=== PATIENT | male | born 1975 | race Caucasian/White ===

== ENCOUNTER 2021-11-13 11:07 | Inpatient (IN) ==
[2021-11-13] MEDS ORDERED: 0.9 % Sodium Chloride 1,000 ML IVC ONE (11:30)
[2021-11-13] MEDS ORDERED: Ondansetron 4 MG/2 ML VIAL IVP ONE (11:47)
[2021-11-13 11:58] LABS: Basophils % 0.2 %; Eosinophils % 0.2 %; Mean Corpuscular Volume 97.4 fL (83.0-100.0)
[2021-11-13 12:00] LABS: Hematocrit 37.2 % (37.5-50.1); Immature Granulocytes % 1.6 % (0-4); Immature Platelets 3.9 % (1.1-6.1); Lymphocytes # 0.9 K/mcL (0.6-4.6); Lymphocytes % 18.6 %; Mean Corpuscular HGB Conc 34.9 g/dL (31.6-35.5); Mean Platelet Volume 9.1 fL (9.4-12.4); Monocytes # 0.7 K/mcL (0.0-1.3); Monocytes % 15.1 %; Red Blood Count 3.82 M/mcL (4.19-5.50); Red Cell Distribution Width 12.3 % (11.5-14.5); Segmented Neutrophils % 64.3 %; White Blood Count 4.9 K/mcL (4.3-11.1)
[2021-11-13 12:21] LABS: BUN/Creatinine Ratio 11 (6-26); Blood Urea Nitrogen 12 mg/dL (6-20); Calcium 8.3 mg/dL (8.6-10.3); Carbon Dioxide 25 mEq/L (23-29); Chloride 89 mEq/L (98-107); Glucose 81 mg/dL (70-105); Osmolality,Calculated 245 (280-300); Potassium 4.2 mEq/L (3.5-5.1); Sodium 118 mEq/L (136-145); eGFR For African Americans > 60 (> 60); eGFR For Non-African Americans > 60 (> 60)
[2021-11-13 13:26] LABS: Neutrophils # 3.2 K/mcL (1.6-8.9); Platelet Count 66 K/mcL (140-400)
[2021-11-13] MEDS ORDERED: Naloxone 0.4 MG/ML INJ IVP PRN (15:52)
[2021-11-13 18:30] LABS: BUN/Creatinine Ratio 10 (6-26); Blood Urea Nitrogen 11 mg/dL (6-20); Calcium 8.6 mg/dL (8.6-10.3); Carbon Dioxide 26 mEq/L (23-29); Chloride 91 mEq/L (98-107); Glucose 84 mg/dL (70-105); Osmolality,Calculated 253 (280-300); Potassium 4.6 mEq/L (3.5-5.1); Sodium 122 mEq/L (136-145); eGFR For African Americans > 60 (> 60); eGFR For Non-African Americans > 60 (> 60)
[2021-11-13 18:45] LABS: Thyroid Stimulating Hormone 8.513 mcIU/mL (0.340-5.600)
[2021-11-13 18:47] LABS: Triiodothyronine (T3) Free 2.14 pg/mL (2.50-3.90)
[2021-11-14 00:57] LABS: Bilirubin,Urine Negative (Negative); Blood,Urine Negative (Negative); Clarity,Urine Clear (Clear); Color,Urine Light-Yellow (Yellow); Glucose,Urine (UA) Normal (Normal); Ketones,Urine Negative (Negative); Leukocyte Esterase,Urine Negative (Negative); Nitrite,Urine Negative (Negative); PH,Urine 6.5 pH Units (5.0-8.0); Protein,Urine Negative (Neg-Trace); Specific Gravity,Urine 1.006 (1.010-1.025)
[2021-11-14 01:06] LABS: Sodium, Urine 33.8 mEq/L
[2021-11-14 03:03] LABS: Mean Corpuscular Hemoglobin 33.9 pg (28.0-33.3)
[2021-11-14 03:05] LABS: Hematocrit 39.5 % (37.5-50.1); Hemoglobin 13.5 g/dL (12.9-16.9); Immature Platelets 2.7 % (1.1-6.1); Mean Corpuscular HGB Conc 34.2 g/dL (31.6-35.5); Mean Corpuscular Volume 99.2 fL (83.0-100.0); Mean Platelet Volume 9.2 fL (9.4-12.4); Red Blood Count 3.98 M/mcL (4.19-5.50); Red Cell Distribution Width 12.2 % (11.5-14.5); White Blood Count 3.9 K/mcL (4.3-11.1)
[2021-11-14 07:37] LABS: BUN/Creatinine Ratio 10 (6-26); Blood Urea Nitrogen 11 mg/dL (6-20); Calcium 8.7 mg/dL (8.6-10.3); Carbon Dioxide 28 mEq/L (23-29); Chloride 93 mEq/L (98-107); Glucose 88 mg/dL (70-105); Osmolality,Calculated 261 (280-300); Potassium 4.3 mEq/L (3.5-5.1); Sodium 126 mEq/L (136-145); eGFR For African Americans > 60 (> 60); eGFR For Non-African Americans > 60 (> 60)
[2021-11-14 10:45] LABS: BUN/Creatinine Ratio 11 (6-26); Blood Urea Nitrogen 12 mg/dL (6-20); Calcium 8.8 mg/dL (8.6-10.3); Carbon Dioxide 26 mEq/L (23-29); Chloride 94 mEq/L (98-107); Glucose 85 mg/dL (70-105); Osmolality,Calculated 261 (280-300); Potassium 4.3 mEq/L (3.5-5.1); Sodium 126 mEq/L (136-145); eGFR For African Americans > 60 (> 60); eGFR For Non-African Americans > 60 (> 60)
[2021-11-14] MEDS ORDERED: Iopamidol - 370 500 ML MLS IVP ONE (11:47)
[2021-11-14 15:39] LABS: BUN/Creatinine Ratio 12 (6-26); Blood Urea Nitrogen 13 mg/dL (6-20); Calcium 8.7 mg/dL (8.6-10.3); Carbon Dioxide 26 mEq/L (23-29); Chloride 95 mEq/L (98-107); Glucose 120 mg/dL (70-105); Osmolality,Calculated 265 (280-300); Potassium 4.1 mEq/L (3.5-5.1); Sodium 127 mEq/L (136-145); eGFR For African Americans > 60 (> 60); eGFR For Non-African Americans > 60 (> 60)
[2021-11-14] MEDS: Divalproex (12 HR) 500 MG TABLET PO SCH (16:24)
[2021-11-14 16:46] LABS: BUN/Creatinine Ratio 12 (6-26); Blood Urea Nitrogen 13 mg/dL (6-20); Calcium 8.7 mg/dL (8.6-10.3); Carbon Dioxide 26 mEq/L (23-29); Chloride 95 mEq/L (98-107); Glucose 144 mg/dL (70-105); Osmolality,Calculated 265 (280-300); Sodium 126 mEq/L (136-145); eGFR For African Americans > 60 (> 60); eGFR For Non-African Americans > 60 (> 60)
[2021-11-14] MEDS: hydrOXYzine pamoate 25 MG CAPSULE PO SCH (20:40)
[2021-11-14] MEDS: Topiramate 25 MG TABLET PO SCH (20:40)
[2021-11-14] MEDS: QUEtiapine Fumarate 300 MG TABLET PO SCH (20:41)
[2021-11-14] MEDS: tiZANidine 4 MG TABLET PO SCH (20:41)
[2021-11-14] MEDS: clonazePAM 0.5 MG TABLET PO SCH (21:20)
[2021-11-14] MEDS: *HR* HYDROcodone/Acet 10/325 mg TABLET PO PRN (21:20)
[2021-11-15 06:12] LABS: Hematocrit 40.1 % (37.5-50.1); Immature Platelets 2.8 % (1.1-6.1); Mean Corpuscular HGB Conc 34.9 g/dL (31.6-35.5); Mean Corpuscular Hemoglobin 34.1 pg (28.0-33.3); Mean Corpuscular Volume 97.8 fL (83.0-100.0); Mean Platelet Volume 8.9 fL (9.4-12.4); Red Blood Count 4.1 M/mcL (4.19-5.50); Red Cell Distribution Width 12.6 % (11.5-14.5); White Blood Count 3.6 K/mcL (4.3-11.1)
[2021-11-15 06:30] LABS: BUN/Creatinine Ratio 13 (6-26); Blood Urea Nitrogen 14 mg/dL (6-20); Calcium 8.9 mg/dL (8.6-10.3); Carbon Dioxide 24 mEq/L (23-29); Chloride 98 mEq/L (98-107); Glucose 73 mg/dL (70-105); Osmolality,Calculated 267 (280-300); Potassium 4.1 mEq/L (3.5-5.1); Sodium 129 mEq/L (136-145); eGFR For African Americans > 60 (> 60); eGFR For Non-African Americans > 60 (> 60)
[2021-11-15 07:21] LABS: Vitamin B12 835 pg/mL (250-1100)
[2021-11-15 08:03] LABS: Hepatitis B Surface Antigen Nonreactive (Nonreactive)
[2021-11-15 08:32] LABS: HIV-1&2 Antibody & p24 Ag Nonreactive (Nonreactive); Hepatitis C Virus Antibody Nonreactive (Nonreactive)
[2021-11-15] MEDS ORDERED: clonazePAM 0.5 MG TABLET PO SCH (09:00)
[2021-11-15] MEDS: Topiramate 25 MG TABLET PO SCH ×2 (09:13→21:55)
[2021-11-15] MEDS: Divalproex (12 HR) 500 MG TABLET PO SCH ×2 (09:13→17:05)
[2021-11-15] MEDS: hydrOXYzine pamoate 25 MG CAPSULE PO SCH ×2 (09:15→21:54)
[2021-11-15] MEDS: clonazePAM 0.5 MG TABLET PO SCH ×2 (09:15→21:55)
[2021-11-15] MEDS: tiZANidine 4 MG TABLET PO SCH (21:54)
[2021-11-15] MEDS: QUEtiapine Fumarate 300 MG TABLET PO SCH (21:54)
[2021-11-16 07:41] LABS: Hematocrit 39.7 % (37.5-50.1); Hemoglobin 13.5 g/dL (12.9-16.9); Immature Platelets 4.8 % (1.1-6.1); Mean Platelet Volume 9.3 fL (9.4-12.4); Red Blood Count 3.97 M/mcL (4.19-5.50); Red Cell Distribution Width 12.3 % (11.5-14.5); White Blood Count 3.9 K/mcL (4.3-11.1)
[2021-11-16] MEDS: Divalproex (12 HR) 500 MG TABLET PO SCH ×2 (08:01→18:09)
[2021-11-16] MEDS: hydrOXYzine pamoate 25 MG CAPSULE PO SCH ×2 (08:02→21:05)
[2021-11-16] MEDS: Topiramate 25 MG TABLET PO SCH ×2 (08:02→21:05)
[2021-11-16 08:11] LABS: BUN/Creatinine Ratio 11 (6-26); Blood Urea Nitrogen 11 mg/dL (6-20); Calcium 8.6 mg/dL (8.6-10.3); Carbon Dioxide 25 mEq/L (23-29); Chloride 99 mEq/L (98-107); Glucose 75 mg/dL (70-105); Osmolality,Calculated 268 (280-300); Potassium 4.8 mEq/L (3.5-5.1); Sodium 130 mEq/L (136-145); eGFR For African Americans > 60 (> 60); eGFR For Non-African Americans > 60 (> 60)
[2021-11-16] MEDS: *HR* HYDROcodone/Acet 10/325 mg TABLET PO PRN (21:04)
[2021-11-16] MEDS: QUEtiapine Fumarate 300 MG TABLET PO SCH (21:05)
[2021-11-16] MEDS: tiZANidine 4 MG TABLET PO SCH (21:05)
[2021-11-16] MEDS: clonazePAM 0.5 MG TABLET PO SCH (21:05)
[2021-11-17 05:10] LABS: Hematocrit 41.1 % (37.5-50.1); Hemoglobin 13.7 g/dL (12.9-16.9); Mean Corpuscular HGB Conc 33.3 g/dL (31.6-35.5); Mean Corpuscular Hemoglobin 33.3 pg (28.0-33.3); Mean Corpuscular Volume 99.8 fL (83.0-100.0); Mean Platelet Volume 9.6 fL (9.4-12.4); Red Blood Count 4.12 M/mcL (4.19-5.50); Red Cell Distribution Width 12.1 % (11.5-14.5); White Blood Count 5.2 K/mcL (4.3-11.1)
[2021-11-17 05:12] LABS: Platelet Count 73 K/mcL (140-400)
[2021-11-17 05:28] LABS: Alanine Aminotransferase 11 Units/L (7-52); Albumin 3.6 g/dL (3.5-5.7); Albumin/Globulin Ratio 1.3 (1.1-2.2); Alkaline Phosphatase 54 Units/L (34-104); Aspartate Amino Transferase 27 Units/L (13-39); BUN/Creatinine Ratio 14 (6-26); Bilirubin,Total 0.6 mg/dL (0.3-1.0); Blood Urea Nitrogen 13 mg/dL (6-20); Calcium 9.1 mg/dL (8.6-10.3); Carbon Dioxide 26 mEq/L (23-29); Chloride 99 mEq/L (98-107); Globulin 2.8 g/dL (2.4-3.5); Glucose 120 mg/dL (70-105); Osmolality,Calculated 273 (280-300); Potassium 4.5 mEq/L (3.5-5.1); Sodium 131 mEq/L (136-145); Total Protein 6.4 g/dL (6.4-8.9); eGFR For African Americans > 60 (> 60); eGFR For Non-African Americans > 60 (> 60)
[2021-11-17] MEDS: hydrOXYzine pamoate 25 MG CAPSULE PO SCH (07:54)
[2021-11-17] MEDS: Divalproex (12 HR) 500 MG TABLET PO SCH (07:54)
[2021-11-17] MEDS: Topiramate 25 MG TABLET PO SCH (07:54)
[2021-11-17 08:04] VITALS: BP 121/80
[2021-11-17 12:05] VITALS: PULSE 86; TEMP 97.2
[2021-11-17 12:13] VITALS: O2SAT 95
== END 2021-11-17 15:30 | disposition home or self-care (01) | DRG 177 ==
LOC: 3NENU 11:07 → EMEROOARM 11:07 → SUATTDRO 15:02 → 3NENU 16:54
PROVIDERS: ADMIT Internal Medicine; ATTEND Internal Medicine

== ENCOUNTER 2022-01-23 12:26 | Observation (INO) ==
[2022-01-23] MEDS ORDERED: 0.9 % Sodium Chloride 1,000 ML IVC ONE (13:26)
[2022-01-23] MEDS ORDERED: Ondansetron 4 MG/2 ML VIAL IVP ONE (13:26)
[2022-01-23] MEDS ORDERED: *HR* FentaNYL (PF) 100 MCG/2 ML VIAL IVP STA (13:26)
[2022-01-23 13:49] LABS: Hematocrit 37.7 % (37.5-50.1); Hemoglobin 13.5 g/dL (12.9-16.9); Mean Corpuscular HGB Conc 35.8 g/dL (31.6-35.5); Mean Corpuscular Hemoglobin 33.8 pg (28.0-33.3); Mean Corpuscular Volume 94.5 fL (83.0-100.0); Mean Platelet Volume 8.6 fL (9.4-12.4); Platelet Count 175 K/mcL (140-400); Red Blood Count 3.99 M/mcL (4.19-5.50); Red Cell Distribution Width 11.3 % (11.5-14.5); White Blood Count 9.7 K/mcL (4.3-11.1)
[2022-01-23 14:20] LABS: Bilirubin,Urine Negative (Negative); Blood,Urine Negative (Negative); Clarity,Urine Clear (Clear); Color,Urine Light-Yellow (Yellow); Glucose,Urine (UA) Normal (Normal); Ketones,Urine Trace mg/dL (Negative); Leukocyte Esterase,Urine Negative (Negative); Nitrite,Urine Negative (Negative); Protein,Urine Negative (Neg-Trace); Specific Gravity,Urine 1.014 (1.010-1.025); Urobilinogen,Urine Normal (Normal)
[2022-01-23 14:23] LABS: Alanine Aminotransferase 25 Units/L (7-52); Albumin 3.7 g/dL (3.5-5.7); Alkaline Phosphatase 69 Units/L (34-104); Aspartate Amino Transferase 80 Units/L (13-39); BUN/Creatinine Ratio 14 (6-26); Bilirubin,Direct 0.3 mg/dL (0.0-0.2); Bilirubin,Indirect 0.4 mg/dL (0.0-1.0); Bilirubin,Total 0.7 mg/dL (0.3-1.0); Blood Urea Nitrogen 12 mg/dL (6-20); Calcium 9.6 mg/dL (8.6-10.3); Carbon Dioxide 27 mEq/L (23-29); Chloride 86 mEq/L (98-107); Globulin 3.7 g/dL (2.4-3.5); Glucose 95 mg/dL (70-105); Lipase 60 Units/L (11-82); Osmolality,Calculated 254 (280-300); Sodium 122 mEq/L (136-145); Total Protein 7.4 g/dL (6.4-8.9)
[2022-01-23] MEDS ORDERED: Naloxone 0.4 MG/ML INJ IVP PRN (15:50)
[2022-01-23] MEDS ORDERED: Ondansetron 4 MG/2 ML VIAL IVP PRN (15:50)
[2022-01-23] MEDS ORDERED: 0.9 % Sodium Chloride 1,000 ML IVC SCH (16:00)
[2022-01-23] MEDS ORDERED: D5% in Water 1,000 ML IVC PRN (17:16)
[2022-01-23] MEDS ORDERED: *HR* Dextrose 50 % in Water (Syg) 50 ML SYRINGE IVP PRN (17:16)
[2022-01-23] MEDS ORDERED: Dextrose Gel 15 GM/37.5 ML TUBE PO PRN ×2 (17:16)
[2022-01-23] MEDS: hydrOXYzine pamoate 25 MG CAPSULE PO SCH (21:57)
[2022-01-23] MEDS: Topiramate 25 MG TABLET PO SCH (21:58)
[2022-01-23] MEDS: QUEtiapine Fumarate 300 MG TABLET PO SCH (21:58)
[2022-01-23] MEDS: Gabapentin 300 MG CAPSULE PO SCH (21:58)
[2022-01-23] MEDS: *HR* HYDROcodone/Acet 10/325 mg TABLET PO SCH (21:58)
[2022-01-24 02:24] LABS: Basophils % 0.2 %; Eosinophils % 0.1 %; Hematocrit 36.5 % (37.5-50.1); Hemoglobin 12.6 g/dL (12.9-16.9); Immature Granulocytes % 0.5 % (0-4); Lymphocytes # 1.2 K/mcL (0.6-4.6); Lymphocytes % 14.4 %; Mean Corpuscular HGB Conc 34.5 g/dL (31.6-35.5); Mean Corpuscular Hemoglobin 32.9 pg (28.0-33.3); Mean Corpuscular Volume 95.3 fL (83.0-100.0); Mean Platelet Volume 8.7 fL (9.4-12.4); Monocytes # 1.5 K/mcL (0.0-1.3); Monocytes % 17.7 %; Neutrophils # 5.6 K/mcL (1.6-8.9); Platelet Count 174 K/mcL (140-400); Red Blood Count 3.83 M/mcL (4.19-5.50); Red Cell Distribution Width 11.2 % (11.5-14.5); Segmented Neutrophils % 67.1 %; White Blood Count 8.4 K/mcL (4.3-11.1)
[2022-01-24 02:43] LABS: BUN/Creatinine Ratio 13 (6-26); Blood Urea Nitrogen 10 mg/dL (6-20); Calcium 9.4 mg/dL (8.6-10.3); Carbon Dioxide 25 mEq/L (23-29); Chloride 94 mEq/L (98-107); Glucose 95 mg/dL (70-105); Magnesium 1.9 mg/dL (1.6-2.6); Osmolality,Calculated 263 (280-300); Phosphorous 4.2 mg/dL (2.7-4.5); Sodium 127 mEq/L (136-145)
[2022-01-24] MEDS: *HR* Enoxaparin 40 MG/0.4 ML SYRINGE SQ SCH (07:11)
[2022-01-24] MEDS: *HR* HYDROcodone/Acet 10/325 mg TABLET PO SCH ×4 (09:33→21:26)
[2022-01-24] MEDS: clonazePAM 0.5 MG TABLET PO SCH (09:34)
[2022-01-24] MEDS: hydrOXYzine pamoate 25 MG CAPSULE PO SCH ×2 (09:34→21:26)
[2022-01-24] MEDS: Gabapentin 300 MG CAPSULE PO SCH ×3 (09:34→21:26)
[2022-01-24] MEDS: Topiramate 25 MG TABLET PO SCH ×2 (09:34→21:26)
[2022-01-24] MEDS: Pantoprazole 40 MG VIAL IVP SCH (09:41)
[2022-01-24] MEDS ORDERED: D5% in 0.9% NACL 1,000 ML IVC SCH (10:30)
[2022-01-24] MEDS ORDERED: polyethylene glycoL 3350 17 GM POWD.PACK PO PRN (17:09)
[2022-01-24] MEDS ORDERED: Divalproex (12 HR) 500 MG TABLET PO SCH (18:15)
[2022-01-24] MEDS: QUEtiapine Fumarate 300 MG TABLET PO SCH (21:25)
[2022-01-24] MEDS: Sennosides/Docusate Sodium TABLET PO SCH (21:26)
[2022-01-25] MEDS: *HR* Enoxaparin 40 MG/0.4 ML SYRINGE SQ SCH (05:47)
[2022-01-25] MEDS ORDERED: Divalproex (12 HR) 500 MG TABLET PO SCH (08:23)
[2022-01-25] MEDS ORDERED: Simethicone 80 MG TAB.CHEW PO PRN (08:25)
[2022-01-25] MEDS: Sennosides/Docusate Sodium TABLET PO SCH (09:38)
[2022-01-25] MEDS: hydrOXYzine pamoate 25 MG CAPSULE PO SCH ×2 (09:38→20:29)
[2022-01-25] MEDS: Topiramate 25 MG TABLET PO SCH ×2 (09:39→20:31)
[2022-01-25] MEDS: clonazePAM 0.5 MG TABLET PO SCH (09:39)
[2022-01-25] MEDS: Gabapentin 300 MG CAPSULE PO SCH ×3 (09:39→20:30)
[2022-01-25] MEDS: Pantoprazole 40 MG VIAL IVP SCH (09:39)
[2022-01-25] MEDS: Divalproex (12 HR) 500 MG TABLET PO SCH ×2 (09:39→16:31)
[2022-01-25] MEDS: *HR* HYDROcodone/Acet 10/325 mg TABLET PO SCH ×4 (09:39→20:35)
[2022-01-25 09:53] LABS: BUN/Creatinine Ratio 16 (6-26); Blood Urea Nitrogen 15 mg/dL (6-20); Calcium 9.7 mg/dL (8.6-10.3); Carbon Dioxide 27 mEq/L (23-29); Chloride 98 mEq/L (98-107); Glucose 100 mg/dL (70-105); Magnesium 1.9 mg/dL (1.6-2.6); Osmolality,Calculated 277 (280-300); Phosphorous 4.2 mg/dL (2.7-4.5); Potassium 3.8 mEq/L (3.5-5.1); Sodium 133 mEq/L (136-145)
[2022-01-25] MEDS ORDERED: Sennosides/Docusate Sodium TABLET PO PRN (11:33)
[2022-01-25] MEDS ORDERED: CLEAR EYES NATURAL TEARS 15 ML BOTTLE BOTH EYES PRN (11:42)
[2022-01-25] MEDS ORDERED: Ipratropium 1 PUFF INHALER IH PRN ×2 (11:53→16:00)
[2022-01-25 13:46] LABS: ABG Base Excess 0 mEq/L (-2 to 3); ABG HCO3 25 mEq/L (21-27); ABG Oxygen Saturation 94 % (95-98); ABG PCO2 44 mmHg (35-45); ABG PH 7.37 pH Units (7.32-7.45); ABG PO2 74 mmHg (85-104); ABG TCO2 27 mEq/L (20-26)
[2022-01-25] MEDS ORDERED: risperiDONE 1 MG TABLET PO SCH (18:00)
[2022-01-25] MEDS: QUEtiapine Fumarate 300 MG TABLET PO SCH (20:29)
[2022-01-25] MEDS ORDERED: tiZANidine 4 MG TABLET PO SCH (21:00)
[2022-01-25] MEDS ORDERED: traZODone 50 MG TABLET PO SCH (21:00)
[2022-01-26] MEDS: *HR* Enoxaparin 40 MG/0.4 ML SYRINGE SQ SCH (05:33)
[2022-01-26 06:16] LABS: % Iron Saturation 8 % (20-55); Iron 23 mcg/dL (65-175); Transferrin 201 mg/dL (203-362)
[2022-01-26] MEDS ORDERED: Cholecalciferol (D-3) 1,000 UNIT (25MCG) TABLET PO SCH (09:00)
[2022-01-26] MEDS: *HR* HYDROcodone/Acet 10/325 mg TABLET PO SCH (10:00)
[2022-01-26] MEDS: Pantoprazole 40 MG VIAL IVP SCH (10:00)
[2022-01-26] MEDS: Gabapentin 300 MG CAPSULE PO SCH ×2 (10:00→15:36)
[2022-01-26] MEDS: Divalproex (12 HR) 500 MG TABLET PO SCH (10:01)
[2022-01-26] MEDS: hydrOXYzine pamoate 25 MG CAPSULE PO SCH (10:01)
[2022-01-26] MEDS: Topiramate 25 MG TABLET PO SCH (10:01)
[2022-01-26] MEDS: clonazePAM 0.5 MG TABLET PO SCH (10:02)
[2022-01-26 15:28] VITALS: BP 154/96; PULSE 100; TEMP 98.5; O2SAT 94
[2022-01-26] MEDS ORDERED: QUEtiapine Fumarate 100 MG TABLET PO SCH (21:00)
[2022-01-26] MEDS ORDERED: Budesonide/Formoterol 160/4.5 1 PUFF INH IH SCH (22:00)
== END 2022-01-26 16:21 | disposition home or self-care (01) ==
LOC: 3ANU 12:26 → EMEROOARM 12:26 → SUATTDRO 16:48 → 3ANU 17:43
PROVIDERS: ADMIT Internal Medicine; ATTEND Internal Medicine